=== PATIENT | female | born 1975 | race Caucasian/White ===

== ENCOUNTER 2020-04-27 10:32 | Outpatient (CLI) | payer MEDICAID | END 2020-04-27 23:59 | disposition home or self-care (01) | LOC: MLB 10:32 → EDSTATUS 05-09 12:00 | PROVIDERS: ATTEND Obstetrics & Gynecology | DX: Z01.812 Encounter for preprocedural laboratory examination (principal); D25.9 Leiomyoma of uterus, unspecified; Z20.822 Contact with and (suspected) exposure to COVID-19 | CPT/HCPCS: 36415; 86886; 86900; 86901; U0003 ==

== ENCOUNTER 2020-05-09 09:53 | Emergency (ER) | payer MEDICAID ==
[~2020-05-09] VITALS: Ht 172.7 cm; Wt 72.6 kg
[2020-05-09 10:00] VITALS: BP 130/80
--- NOTE | 2020-05-09 10:07 | NUR ---
Patient ambulated to bed 11. RN evaluating the patient at bedside.
[2020-05-09 10:55] LABS: BASOPHILS % (AUTO) 0.4 % (0.0-2.0); EOSINOPHILS % (AUTO) 0.5 % (0.0-4.0); HEMATOCRIT 33.2 % (36-48); HEMOGLOBIN 10.9 g/dL (12.0-16.0); LYMPHOCYTES # (AUTO) 1.4 K/uL (2.5-16.5); LYMPHOCYTES % (AUTO) 17.4 % (20.5-51.1); MEAN CORPUSCULAR HEMOGLOBIN 26 pg (27-31); MEAN CORPUSCULAR HGB CONC 33 g/dL (33-37); MEAN CORPUSCULAR VOLUME 78.6 fL (80-94); MONOCYTES # (AUTO) 0.5 K/uL (0.8-1.0); MONOCYTES % (AUTO) 6.5 % (1.7-9.3); NEUTROPHILS # (AUTO) 5.9 K/uL (1.8-7.7); NEUTROPHILS % (AUTO) 75.2 % (42.2-75.2); PLATELET COUNT (AUTO) 384 K/uL (140-450); RED BLOOD CELL COUNT(AUTO) 4.23 MIL/uL (4.20-5.40); RED CELL DISTRIBUTION WIDTH 14.5 % (11.6-13.7); WHITE BLOOD COUNT (AUTO) 7.9 K/uL (4.8-10.8)
[2020-05-09 11:02] LABS: ANION GAP 13.8 (8-16); CARBON DIOXIDE 25.4 mmol/L (21-32); CREATININE 0.6 mg/dL (0.6-1.3); POTASSIUM 4.2 mmol/L (3.5-5.1)
--- NOTE | 2020-05-09 11:06 | NUR ---
Dr. Hartman is evaluating the patient at bedside.
[2020-05-09] MEDS ORDERED: KETOROLAC 60 MG/2 ML VIAL IM ONE (11:10)
[2020-05-09] MEDS ORDERED: IBUP-2213 PO (11:34)
[2020-05-09] MEDS ORDERED: MEDR10TA PO (11:34)
[2020-05-09] MEDS ORDERED: ACET-8386 PO (11:34)
[2020-05-09 11:42] VITALS: BP 132/87
--- NOTE | 2020-05-09 11:42 | NUR ---
Patient assessed, treated, and discharged with v/s stable by ERMD. Written and verbal after care instructions ABOUT DYSFUNCTIONAL UERINE BLEEDING given and explained IN [place]. Patient alert, oriented and verbalized understanding of instructions. Ambulatory with steady gait. All questions addressed prior to discharge. ID band removed. Patient advised to follow up with PMD. Rx of NORCO, IBUPROFEN, AND PROVERA given. Patient educated on indication of medication including possible reaction and side effects. Opportunity to ask questions provided and answered.
== END 2020-05-09 11:42 | disposition home or self-care (01) ==
LOC: MED 09:53
DX: N93.8 Other specified abnormal uterine and vaginal bleeding (principal); Z90.49 Acquired absence of other specified parts of digestive tract; Z98.890 Other specified postprocedural states
CPT/HCPCS: 36415; 80048; 81002; 81025; 85025; 96372; 99283; J1885

== ENCOUNTER 2022-02-20 13:50 | Emergency (ER) | payer MEDICAID, OTHER ==
[~2022-02-20] VITALS: Ht 152.4 cm; Wt 67.6 kg
[~2022-02-20 13:50] MED LIST: ACET-8905 PO; ACTIFED PO; ADK 10 PO; BEN10 PO; FERR325E14 PO; GABA100C PO; IBUP-2213 PO; MEDR10TA PO; NAPR-54 PO; OMEP-303 PO; OXYC-304 PO; PROG100C4 PO; [UNRECOGNIZED DRUG - OTHER] PO
[2022-02-20 14:04] VITALS: BP 152/90
[2022-02-20] MEDS ORDERED: KETOROLAC 60 MG/2 ML VIAL IM ONE (14:25)
--- NOTE | 2022-02-20 14:46 | NUR ---
46F PRESENTS TO ED WITH C/O LLQ ABD PAIN X 8MONTHS WORSENING IN LAST 2 DAYS. PT REPORTS HX OF HERNIA IN LLQ, A CONSTANT, ACHING LIKE, 10/10 PAIN RADIATING FROM LLQ TO LUQ. PT REPORTS NAUSEA, DENIES VOMTING. PT DENIES USE OF MEDS FOR PAIN, FEVERS OR CHILLS.
[2022-02-20] MEDS ORDERED: TRAM-748 PO (15:08)
== END 2022-02-20 15:25 | disposition home or self-care (01) ==
LOC: MED 13:50
DX: K43.9 Ventral hernia without obstruction or gangrene (principal)
CPT/HCPCS: 74018; 96372; 99283; J1885

== ENCOUNTER 2022-04-06 15:19 | Emergency (ER) | payer OTHER ==
[~2022-04-06] VITALS: Ht 152.4 cm; Wt 66.7 kg
[~2022-04-06 15:19] MED LIST changes: +TRAM-748 PO
[2022-04-06 15:36] VITALS: BP 133/77
[2022-04-06 16:09] LABS: APPEARANCE,URINE CLEAR (CLEAR); BILIRUBIN,URINE NEGATIVE (NEGATIVE); BLOOD, URINE TRACE-I (NEGATIVE); COLOR,URINE YELLOW (YELLOW); LEUKOCYTE ESTERASE ,URINE 1+ (NEGATIVE); NITRITE, URINE NEGATIVE (NEGATIVE); UGLUCOSE NEGATIVE (NEGATIVE)
--- NOTE | 2022-04-06 16:30 | NUR ---
sleeping, no ac distress, o2 sat 98% ra, sr up times 2
[2022-04-06 16:43] LABS: RBC,URINE 0-5 /HPF (0-5)
[2022-04-06 16:44] LABS: TRICHOMONAS,URINE None Seen /HPF (None Seen); YEAST,URINE None Seen /HPF (None Seen)
[2022-04-06] MEDS ORDERED: CEPH-588 PO (17:40)
[2022-04-06 17:50] VITALS: BP 115/68
--- NOTE | 2022-04-06 17:54 | NUR ---
Patient discharged with v/s stable. Written and verbal after care instructions given and explained. Patient verbalized understanding. Ambulatory with steady gait. All questions addressed prior to discharge. Advised to follow up with PMD.
== END 2022-04-06 17:54 | disposition home or self-care (01) ==
LOC: MED 15:19
DX: N39.0 Urinary tract infection, site not specified (principal); E03.9 Hypothyroidism, unspecified; Z79.899 Other long term (current) drug therapy
CPT/HCPCS: 81001; 81025; 87086; 99283